=== PATIENT | female | born 1985 | race African-American/Black ===

== ENCOUNTER 2024-10-09 08:04 | Emergency (ER) | payer OTHER ==
[2024-10-09 08:11] VITALS: BP 139/84; PULSE 81; RESP 20; TEMP 98; BMI 29.7
[2024-10-09] MEDS ORDERED: ACETAMINOPHEN 500 MG TABLET (FP) ONE (08:47)
[2024-10-09] MEDS ORDERED: LIDOCAINE 4% PATCH TP ONE (08:47)
[2024-10-09] MEDS: LIDOCAINE 4% PATCH TP ONE (08:56)
[2024-10-09] MEDS: ACETAMINOPHEN 500 MG TABLET (FP) PO ONE (08:56)
[2024-10-09] MEDS ORDERED: LIDOCAINE PATCH REMOVAL MC ONE (22:00)
== END 2024-10-09 10:20 | disposition home or self-care (01) ==
LOC: JER 08:04
DX: M54.2 Cervicalgia (principal); M25.551 Pain in right hip; V43.53XA Car driver injured in collision with pick-up truck in traffic accident, initial encounter; Y92.410 Unspecified street and highway as the place of occurrence of the external cause
CPT/HCPCS: 73521-TC-FY; 99283-25